=== PATIENT | female | born 1960 | race Caucasian/White ===

== ENCOUNTER 2017-09-13 06:34 | Day surgery (SDC) | payer OTHER, SELFPAY ==
[2017-09-13 07:03] VITALS: BP 138/90; PULSE 85; RESP 18; TEMP 36.2; O2SAT 99; BMI 30.1
--- NOTE | 2017-09-13 08:30 | COLBX_PTH ---
PATIENT: HEATHER RENTERIA LOC: EN U#:[id number] AGE/SX: 56/F ROOM: RE09/13/[address]: Dr. David Hoang MD : 1960 BED: DIS: 09/13/2017 SPEC #: [id number] RECD: 09/13/17 14:19 STATUS: LAN KRIS #: [id number] YOLIE: 09/13/17 08:[address]: David Hoang DEPT: SURGICAL PATHOLOGY RECD BY: Candace Peralta ENTERED: 09/13/17 14:38 SP TYPE: COLON BX OTHR DR: Dr. Werner Peres MD Tissues: Sigmoid colon biopsy Procedures: Surgery Specimen Level IV HEADER OPERATION: Colonoscopy ? open access (MAC) PRE-OP DIAGNOSIS: Screening TISSUE SUBMITTED: Polyp at sigmoid colon MICROSCOPIC DIAGNOSIS Sigmoid colon polyp, biopsy: Hyperplastic polyp. AM:dafne 09/14/17 MICROSCOPIC DESCRIPTION Slides are reviewed. GROSS DESCRIPTION Received in fixative is one container labeled with the patient's name and designated polyp sigmoid colon. The specimen consists of multiple irregular fragments of light thompson soft tissue that in aggregate measure 0.6 x 0.5 x 0.1 cm. The specimen is totally submitted in one cassette. / AM:dafne 09/13/17 TC:5 CPT: 34633
--- NOTE | 2017-09-13 08:49 | PCM.HP.STD ---
Problem List (1) Encounter for screening for malignant neoplasm of colon Status: Acute History of Present Illness Date of Admission: 09/13/17 The patient is a 56 year old F who presents for screening colonoscopy. Past Medical History Medical History: Medical History (Last Reviewed 09/13/17 @ 08:50 by David Hoang MD) SOB (shortness of breath) R06.02 Allergies cat dander Allergy (Verified 09/10/17 08:04) Unknown house dust Allergy (Verified 09/10/17 08:04) Unknown nickel Allergy (Verified 09/10/17 08:04) Unknown sweet pea Allergy (Uncoded 09/10/17 08:04) Unknown Home Medications: Ambulatory Orders Medication Instructions Recorded NK [NK] 09/10/17 Surgical History: Surgical History (Last Reviewed 09/13/17 @ 08:50 by David Hoang MD) History of cholecystectomy Z98.890, Z90.49 History of hysterectomy Z98.890, Z90.710 History of thyroid surgery Z98.890 Smoking Status: Former smoker Tobacco Use: Cigarettes - *Family History Maternal Family History: Family History (Last Updated 03/10/17 @ 09:25 by Alie Gilliam) Other COPD (chronic obstructive pulmonary disease) Heart disease History Items: No pertinent history Review of Systems Cardiovascular: Denies: Chest Pain, Chest Pressure, Chest Tightness, Palpitations Respiratory: Denies: Cough, Hemoptysis, Shortness of breath at rest, Shortness of breath upon exertion, Wheezing Gastrointestinal: Denies: Abdominal Pain, Constipation, Diarrhea, Hematemesis, Nausea, Melena, Vomiting VTE Information - Inpt Only VTE Present on Admission: No VTE Mechan Device Prophylaxis: None VTE Pharm Prophylaxis ordered?: No Reason prophylaxis not ordered:: Treatment Not Indicated Patient Problems: Active and Suspected Problems (Last Updated 03/10/17 @ 09:25 by Alie Gilliam) Encounter for screening for malignant neoplasm of colon (Acute) - Physical Exam Lungs: Clear to auscultation Cardiovascular: Regular rate, Regular Rhythm, No murmurs Abdomen: Bowel Sounds Present, Soft, Non Tender, Non-Distended Vital Signs Temp Pulse Resp BP Pulse Ox 97.2 F L 85 18 138/90 H 99 09/13/17 07:03 09/13/17 07:03 09/13/17 07:03 09/13/17 07:03 09/13/17 07:03 Oxygen Delivery Method Room Air Weight: 164 lb 14.492 oz Body Mass Index (BMI) 30.1 Assessment/Plan All Active Problems (Last Updated 03/10/17 @ 09:25 by Alie Gilliam) Encounter for screening for malignant neoplasm of colon (Acute) Sinusitis (Acute) Bronchitis (Acute) My plan is to perform a colonoscopy on the patient risk benefits have been reviewed with the patient at the time of the procedure she agrees to proceed.
--- NOTE | 2017-09-13 08:51 | PCM.OPRPT ---
Problem List (1) Encounter for screening for malignant neoplasm of colon Status: Acute Report of Operation Date of Procedure: 09/13/17 Pre-Operative Diagnosis: Screening colonoscopy Post-Operative Diagnosis: Same Surgery/Procedure Performed:: Colonoscopy with snare polypectomy 74865 Type of Anesthesia:: MAC Anesthesiologist: Serafin Van Description of Procedure: Patient brought in the endoscopy suite. Placed on the left lateral decubitus position. She was given graded anesthesia. Scope was inserted into the rectum and directed to the sigmoid colon, descending colon, transverse colon, ascending colon, to the cecum without difficulty operative findings: 1. Cecum: Normal appearance no mass lesions normal ileocecal valve. 2. Ascending colon: Normal appearance no mass lesions. 3. Transverse colon: Normal appearance no mass lesions. 4. Descending colon: Normal appearance no mass lesions. 5. Sigmoid colon: Normal appearance small polyp was identified was removed with snare cautery technique brought back to the channel of the scope. There is moderate amount of diverticular disease identified. 6. Rectum: Normal appearance no mass lesions internal hemorrhoids was identified. Patient will need to have another colonoscopy in 3 years. - Admit VTE Documentation VTE Present on Admission: No VTE Mechan Device Prophylaxis: SCD's VTE Pharm Prophylaxis ordered?: No Reason prophylaxis not ordered:: Treatment Not Indicated
[2017-09-13 08:55] VITALS: BP 107/67; BP 138/90; PULSE 85; RESP 18; TEMP 36.5; O2SAT 94
[2017-09-13 09:00] VITALS: BP 125/82; BP 138/90; PULSE 74; RESP 18; O2SAT 97
[2017-09-13 09:05] VITALS: BP 123/78; BP 138/90; PULSE 70; RESP 18; O2SAT 97
[2017-09-13 09:10] VITALS: BP 116/83; BP 138/90; PULSE 71; RESP 18; TEMP 36.7; O2SAT 98
[2017-09-13 09:49] VITALS: BP 138/90
== END 2017-09-13 09:49 | disposition home or self-care (01) ==
LOC: EN 06:35 → AC 06:36
PROVIDERS: Family Provider Internal Medicine; PCP Internal Medicine; Visit Provider Surgery
PROC: 0DJD8ZZ Inspection of Lower Intestinal Tract, Via Natural or Artificial Opening Endoscopic (ICD-10-PCS; CPT 45378; principal; 2017-09-13 08:25)
DX: Z12.11 Encounter for screening for malignant neoplasm of colon (principal); K63.5 Polyp of colon; K57.30 Diverticulosis of large intestine without perforation or abscess without bleeding; Q61.3 Polycystic kidney, unspecified; J20.9 Acute bronchitis, unspecified; J01.90 Acute sinusitis, unspecified; Z78.0 Asymptomatic menopausal state; Z87.891 Personal history of nicotine dependence; Z90.49 Acquired absence of other specified parts of digestive tract; Z90.710 Acquired absence of both cervix and uterus
CPT/HCPCS: 45385; 88305; J7120

== ENCOUNTER 2019-03-31 07:00 | Emergency (ER) | payer OTHER, SELFPAY ==
[2019-03-01 17:04] VITALS: BMI 30.1
[2019-03-31 07:01] VITALS: BP 133/96; PULSE 82; RESP 16; TEMP 36.4; O2SAT 97; BMI 33.0
--- NOTE | 2019-03-31 07:17 | ED.RN ---
PT STATES NEED FOR USE OF BATHROOM. GIVEN SYNCOPAL EPISODE X2 THIS AM, BEDSIDE COMMODE OFFERED FOR SAFETY. PT REFUSED STATING THAT SHE WOULD WALK OUT OF ED IF NOT ALLOWED TO USE RESTROOM. PT AGAIN TOLD THAT FOR SAFETY REASONS A BEDSIDE COMMODE WOULD BE PREFERRED. PT AGAIN STATED THAT SHE WOULD CRAWL OUT OF THE BED AND LEAVE ON HER OWN IF NOT TAKEN TO RESTROOM. PT WAS ASSISTED TO RESTROOM AND DIRECTED TO CALL LIGHT CORD IF SHE FELT ILL. PT MONITORED WHILE IN RESTROOM. PT AMBULATED BACK TO ROOM PER SELF.
--- NOTE | 2019-03-31 07:26 | EKG12_ITS ---
Test Reason : SYNCOPE Blood Pressure : / mmHG Vent. Rate : 071 BPM Atrial Rate : 071 BPM P-R Int : 150 ms QRS Dur : 080 ms QT Int : 394 ms P-R-T Axes : 071 028 007 degrees QTc Int : 428 ms Normal sinus rhythm Nonspecific T wave abnormality Abnormal ECG Confirmed by SONALI MOYA, NELSON ([id number]), editor house organ ANTON BENITO ([id number]) on 04/03/2019 2:36:42 PM Referred By: KAYLAN Confirmed By:RICK LYON MD
--- NOTE | 2019-03-31 07:27 | RAD_ITS ---
STUDY: X-RAY CHEST REASON FOR EXAM: Female, 58 years old. syncopal episode x 2 TECHNIQUE: PA and lateral views of the chest. COMPARISON: None. FINDINGS: The lungs are clear and expanded. There is no demonstrated pleural abnormality. Normal size heart. Normal mediastinum and hoang. Normal visualized pulmonary arteries. Normal visualized aortic arch and descending thoracic aorta. Normal visualized thoracic spine. Normal visualized ribs, clavicles, and shoulders. There is no demonstrated abnormality of the visualized soft tissue structures of the upper abdomen. RAD/Chest PA and Lateral IMPRESSION: Normal x-ray examination of the chest. Electronically Signed: Randall Vo MD at 8:13 EST Tel , Service support ,
[2019-03-31] MEDS: 0.9% Normal Saline 1,000 ML 1000 ML IV (07:33)
[2019-03-31 07:36] LABS: Absolute Neutrophil Count 5.7 X10^3/uL (2.0-7.7); Basophil# 0.05 X10^3/uL; Basophil% 0.6 % (0-1); Eosinophil# 0.14 X10^3/uL; Eosinophils% 1.6 % (0-5); Hematocrit 47.7 % (37-47); Hemoglobin 15.7 g/dL (12.0-15.0); Lymphocyte % 26.9 % (19-41); Mean Corp Hgb Conc 32.9 g/dL (32-36); Mean Platelet Vol. 10.5 fl (6.2-12.0); Monocyte# 0.66 X10^3/uL; Monocyte% 7.4 % (0-10); NRBC Flagged by Analyzer 0 % (0-5); Neutrophil # 5.65 X10^3/uL (2.7-7.7); Neutrophil % 63.2 % (47-70); Platelet Count 183 K/mm3 (150-450); RBC Distribution Width CV 12.7 % (11.6-14.6); RBC Distribution Width SD 42.2 fl (35.1-43.9); Red Blood Count 5.24 M/mm3 (4.2-5.4); White Blood Count 8.9 K/mm3 (4.4-11.0)
[2019-03-31 07:46] LABS: ALB/GLOB Ratio 1.3 RATIO (0.9-2.4); AST(SGOT) 23 U/L (15-37); Alanine Aminotransfer ALT/SGPT 26 U/L (13-56); Albumin, Serum 3.8 g/dL (3.2-5.0); Alkaline Phosphatase 71 U/L (45-117); Anion Gap 5 (5-15); BUN 20 mg/dL (7-18); BUN/Creat Ratio 18.9 RATIO (10-20); Calcium,Total 8.5 mg/dL (8.5-10.1); Chloride 111 mmol/L (98-107); Creatinine, Serum 1.06 mg/dL (0.55-1.02); EST Glomerular Filtration Rate 56 mL/min (>60); Est Glom Filt Rate - Afr Amer 68 mL/min (>60); Globulin 2.9 g/dL (2.2-4.2); Glucose 139 mg/dL (74-106); Lipase 241 U/L (73-393); Potassium 3.8 mmol/L (3.5-5.1); Protein, Total 6.7 g/dL (6.4-8.2); Sodium Level 140 mmol/L (136-145)
--- NOTE | 2019-03-31 07:49 | ED.DCSUM_ITS ---
- ER Visit Summary Date of Service: 03/31/19 Chief Complaint: Syncope History of Present Illness: The patient is a 58 F who presents with 2 syncopal episodes that occurred today while she was at work. Patient states that while she was driving to work she felt lightheaded. Patient states she became nauseat ed and had dry heaves. Patient states that when she got to work she went to the bathroom and started having diarrhea. Patient states when she attempted to stand from the toilet she got lightheaded. Patient states she was able to get to the sink and then passed out on the floor. Patient states she was feeling hot at the time but denies any sweats. Patient states she was able to stand back up and started walking to the break room. Patient states that while she was walking to the break room she felt lightheaded again and passed out again. Patient denies any palpitations. Patient denies any chest pain. Patient denies any shortness of breath. Physical Examination: Vital signs are stable. Patient is afebrile. Patient is in no acute distress. Oral mucosa is pink and moist. Neck is supple. Trachea is midline. There is no JVD noted. Heart was regular rate and rhythm. Lungs are clear and equal bilaterally. Abdomen is soft. Bowel sounds are normal. There is no tenderness. There is no rebound or guarding noted. Skin is warm dry. Cranial nerves II through XII are intact. There are no focal motor or sensory deficits noted. Extremities are intact. There is no calf tenderness or edema. Test Results: EKG shows normal sinus rhythm with a rate of 71. There are no acute ST or T wave changes. There are no prior EKGs available for comparison. CBC, comprehensive metabolic profile, lipase, urinalysis, and troponin were obtained were all within normal limits. PA and lateral chest x-ray was obtained. There is no acute cardiopulmonary process. This was interpreted by the radiologist and myself. Emergency Department Course and Treatment: Patient was given IV fluids. Orthostatic vital signs were normal. Patient was feeling better on reevaluation. Patient was advised that this syncopal episode is most likely to the nausea and vomiting from a viral illness. Patient was instructed to start with a liquid diet and advance her diet as tolerated. Patient was instructed to follow-up with her primary care physician in 5 to 7 days. Patient understood and was agreeable with the plan. All questions were answered. Disposition: Discharge home Impression: 1. Syncope 2. Nausea, vomiting, diarrhea This note was generated with [employer] dictation software. It may contain incorrect words, spelling, and punctuation that were not noted in review of the chart prior to signing ED Disposition - Plan for ED Patient: Disposition: Home or Assisted Living Diagnosis: Syncope, Nausea vomiting and diarrhea Instructions: SYNCOPE, Unk Cause, VOMITING AND DIARRHEA, Nonspecific (Adult) Referrals: Werner Peres MD [Primary Care Provider] - 3-5 Days
[2019-03-31 09:33] VITALS: BP 123/81; BP 127/73; BP 131/77; PULSE 75; PULSE 82; PULSE 99; RESP 18; O2SAT 97
[2019-03-31 09:38] LABS: Color, Urine Yellow (Yellow); Glucose, Dipstick Normal (Normal); Ketone-Dipstick Negative (Negative); Leukocyte Esterase-Dipstick Negative /ul (Negative); Nitrite-Dipstick Negative (Negative); Occult Blood-Urine 10 /ul (Negative); Protein-Dipstick 30 mg/dl (Negative); Urine Bilirubin Dipstick Negative (Negative); Urine Clarity Sl. Cloudy (Clear); Urine Urobilinogen Normal (Normal)
[2019-03-31 09:50] LABS: Bacteria 1+ /hpf (None Seen); Fine Granular Cast- Urine 0-5 SEEN /lpf (0-5); Mucous, Urine 1+ /hpf (<or=2+); Red Blood Cells-Urine 0-5 SEEN /hpf (0-5); Squamous Epithelial Cells - UA 0-5 SEEN /hpf (5-10); White Blood Cells 0-5 SEEN /hpf (0-5)
== END 2019-03-31 10:26 | disposition home or self-care (01) ==
PROVIDERS: Emergency Provider Emergency Medicine; PCP Internal Medicine
DX: R55 Syncope and collapse (principal); R11.2 Nausea with vomiting, unspecified; R19.7 Diarrhea, unspecified
CPT/HCPCS: 71046; 80053; 81001; 83690; 84484; 85025; 93005; 99285; A4216

== ENCOUNTER 2020-09-20 05:07 | Day surgery (SDC) | payer OTHER, SELFPAY ==
[2020-09-20] VITALS (14 sets, daily range): BP systolic 78–143; BP diastolic 38–88; PULSE 81–90; RESP 14–16; TEMP 36–37.1; O2SAT 94–100; BMI 31.1
[2020-09-20] MEDS: Lactated Ringers 1,000 ML 100 ML IV (05:35)
--- NOTE | 2020-09-20 05:49 | HP.PCM_ITS ---
HPI - General HPI Narrative HEATHER RENTERIA, is a 60 F who presents for surveillance colonoscopy today. On September 13, [address] Hoang the patient had a colonoscopy with snare polypectomy. This was a sigmoid polyp. Follow-up in 3 years was recommended. Fortunately the patient is not having any difficulties. No abdominal pain. No bright red blood per rectum or melena. No unexpected weight loss. She otherwise states that she is in good health. She is not on any chronic medications. [facility] Medical History (Updated 09/20/20 @ 06:[address] Loc Blanchard MD) Arthritis Back pain Blackout Chronic cough Former smoker Post-menopausal SOB (shortness of breath) Syncope Wears dentures Wears glasses Home Medications NK 03/31/19 [History Last Taken Unknown] Allergy/AdvReac Type Severity Reaction Status Date / Time cat dander Allergy Unknown Verified 09/20/20 05:35 house dust Allergy Unknown Verified 09/20/20 05:35 nickel Allergy Unknown Verified 09/20/20 05:35 sweet pea Allergy Unknown Uncoded 09/20/20 05:35 Family History Other COPD (chronic obstructive pulmonary disease) Heart disease Surgical History (Updated 09/18/20 @ 16:07 by Elena Bucio) History of cholecystectomy History of hysterectomy History of thyroid surgery Hx of colonoscopy Hx of tooth extraction Social History (Updated 03/01/19 @ 17:08 by Kendrick CRUM, PA) Smoking Status: Never smoker alcohol intake: never ROS Constitutional Constitutional: Reports systems reviewed and no addt'l complaints, except as documented Cardiovascular Cardiovascular: Denies chest pain Respiratory/Chest Respiratory/Chest: Denies shortness of breath at rest Gastrointestinal Gastrointestinal: Denies abdominal pain, change in bowel habits, hematochezia or melena Vital Signs Vital Signs Vital Signs: Weight Body Mass Index (BMI) 33.0 Physical Exam Const alert, oriented x3 and no apparent distress General Appearance: cooperative and comfortable Eyes General Eye: normal appearance of both eyes Neck General: normal visual inspection Chest inspection of chest normal Resp Effort and Inspection: able to speak in complete sentences and symmetric chest movement Auscultation: clear to auscultation bilaterally Cardio regular rate and regular rhythm GI soft to palpation, non-tender and non-distended Extremity no calf tenderness Neuro oriented x3 Psych thought process normal Assessment & Plan Assessment/Plan (1) Personal history of colonic polyps: PLAN: I recommended the patient her surveillance colonoscopy with possible biopsy or polypectomy as indicated. She is aware of the technique, benefit, risk, alternatives. She has had an opportunity to ask and have questions answered. She presents via open access today. We will proceed as noted. Loc Blanchard M.D., F.A.C.S.
[2020-09-20] MEDS: Midazolam 5 MG/ML Syringe ×2 (06:25→06:54)
--- NOTE | 2020-09-20 06:30 | COLBX_PTH ---
PATIENT: HEATHER RENTERIA LOC: EN U#:[id number] AGE/SX: 60/F ROOM: RE09/20/[address]: Dr. Loc Blanchard MD : 1960 BED: DIS: 09/20/2020 SPEC #: [id number] RECD: 09/20/20 10:53 STATUS: LAN PONCE #: [id number] YOLIE: 09/20/20 06:[address]: Loc Blanchard DEPT: SURGICAL PATHOLOGY RECD BY: Candace Peralta ENTERED: 09/20/20 13:56 SP TYPE: COLON BX OTHR DR: Dr. Werner Peres MD Tissues: A - Colon, NOS B - SPLENIC FLEXURE Procedures: Surgery Specimen Level IV HEADER OPERATION: Colonoscopy ? open access (MOD) PRE-OP DIAGNOSIS: Colonic polyps TISSUE SUBMITTED: A - Hepatic flexure polyps x2 (cold snare and biopsy), B - Splenic flexure polyp biopsy MICROSCOPIC DIAGNOSIS A. Hepatic flexure polyps x2, cold snare and biopsy: Fragments of tubular adenoma. Fragments of hyperplastic polyp. B. Splenic flexure polyp, biopsy: Fragments of colonic mucosa, no pathologic diagnosis. SEKOU:dafne 09/23/2020 MICROSCOPIC DESCRIPTION Slides are reviewed. GROSS DESCRIPTION A - Received in fixative is one container labeled with the patient's name and designated hepatic flexure polyp. The specimen consists of multiple irregular fragments of light thompson soft tissue that in aggregate measure 2.5 x 0.7 x 0.2 cm. The specimen is totally submitted in one cassette. B - Received in fixative is one container labeled with the patient's name and designated splenic flexure polyp biopsy. The specimen consists of multiple irregular fragments of light thompson soft tissue that in aggregate measure 1 x 0.3 x 0.1 cm. The specimen is totally submitted in one cassette. / SEKOU:dafne 09/20/20 TC:1 CPT: 89950 x2
--- NOTE | 2020-09-23 09:51 | OP.CCLET_ITS ---
09/23/2020 Werner Peres [address] [place] [address] Re : Colonoscopy procedure for Saundra Beltrán Dear Dr. Peres This procedure was performed on Sunday, September 20, 2020. My impressions and recommendations are as follows: Impressions : - Hemorrhoids found on perianal exam. - Anal stricture found on digital rectal exam. - One 10 mm polyp at the hepatic flexure, removed with a cold snare. - One 8 mm polyp at the splenic flexure, removed with a cold biopsy forceps. Resected and retrieved. - Diverticulosis in the sigmoid colon and in the descending colon. Recommendations : - Discharge patient to home. - Resume previous diet. - Continue present medications. - Repeat colonoscopy in 1 year for surveillance based on pathology results. - Return to my office in 1 week. My findings are described in the full procedure note, which is enclosed. If I can be of further assistance, please feel free to contact me at Doctor phone number(s): Work: . Sincerely, Loc Blanchard MD 09/20/2020 7:09:05 AM This report has been signed electronically.
--- NOTE | 2020-09-23 09:51 | OP.COLON_ITS ---
Patient Name: Saundra Beltrán Procedure Date: 09/20/2020 6:16 AM Date of : 1960 Age: 60 Procedure: Colonoscopy Indications: High risk colon cancer surveillance: Personal history of colonic polyps Providers: Loc Blanchard MD Referring MD: Werner Peres Medicines: Midazolam 5.5 mg IV, Meperidine 100 mg IV Patient Profile: Last Colonoscopy: July 2017. Complications: No immediate complications. Procedure: Pre-Anesthesia Assessment: - Prior to the procedure, a History and Physical was performed, and patient medications and allergies were reviewed. The patient's tolerance of previous anesthesia was also reviewed. The risks and benefits of the procedure and the sedation options and risks were discussed with the patient. All questions were answered, and informed consent was obtained. Prior Anticoagulants: The patient has taken no previous anticoagulant or antiplatelet agents. ASA Grade Assessment: II - A patient with mild systemic disease. After reviewing the risks and benefits, the patient was deemed in satisfactory condition to undergo the procedure. After I obtained informed consent, the scope was passed under direct vision. Throughout the procedure, the patient's blood pressure, pulse, and oxygen saturations were monitored continuously. The colonoscope was introduced through the anus and advanced to the cecum, identified by appendiceal orifice and ileocecal valve. The colonoscopy was extremely difficult due to a redundant colon. The patient tolerated the procedure well. The quality of the bowel preparation was adequate to identify polyps. Moderate Sedation: Moderate (conscious) sedation was personally administered by the endoscopist. The following parameters were monitored: oxygen saturation, heart rate, blood pressure, and response to care. Total physician intraservice time was 20 minutes. Scope In: 6:28:35 AM Scope Withdrawal Time 0 hours 25 minutes 7 seconds Scope Out: 7:00:19 AM Total Procedure Duration Time 0 hours 31 minutes 44 seconds Findings: Hemorrhoids were found on perianal exam. The digital rectal exam findings include anal stricture. A 10 mm polyp was found in the hepatic flexure. The polyp was sessile. The polyp was removed with a cold snare. There was a polyp on the inner curvature side of the hepatic flexure and a separate 12 mm polyp on the outer curvature. The outer curvature polyp was retrieved with a cold snare and completely removed. The inner curvature polyp was treated both with a cold snare and multiple biopsy forceps. However because of the acute angulation of the inner curvature I could not completely eradicate that polyp. Multiple specimens however were obtained. A 8 mm polyp was found in the splenic flexure. The polyp was sessile. The polyp was removed with a cold biopsy forceps. Resection and retrieval were complete. Multiple diverticula were found in the sigmoid colon and descending colon. Impression: - Hemorrhoids found on perianal exam. - Anal stricture found on digital rectal exam. - One 10 mm polyp at the hepatic flexure, removed with a cold snare. - One 8 mm polyp at the splenic flexure, removed with a cold biopsy forceps. Resected and retrieved. - Diverticulosis in the sigmoid colon and in the descending colon. Recommendation: - Discharge patient to home. - Resume previous diet. - Continue present medications. - Repeat colonoscopy in 1 year for surveillance based on pathology results. - Return to my office in 1 week. Procedure Code(s): --- Professional --- 40445, Colonoscopy, flexible; with removal of tumor(s), polyp(s), or other lesion(s) by snare technique 52175, 59, Colonoscopy, flexible; with biopsy, single or multiple 86786, 59, Moderate sedation services provided by the same physician or other qualified health animal care service worker performing the diagnostic or therapeutic service that the sedation supports, requiring the presence of an independent trained observer to assist in the monitoring of the patient's level of consciousness and physiological status; initial 15 minutes of intraservice time, patient age 5 years or older Diagnosis Code(s): --- Professional --- Z86.010, Personal history of colonic polyps K64.9, Unspecified hemorrhoids K62.4, Stenosis of anus and rectum D12.3, Benign neoplasm of transverse colon (hepatic flexure or splenic flexure) K57.30, Diverticulosis of large intestine without perforation or abscess without bleeding CPT copyright 2017 [employer] [place] [employer]. All rights reserved. The codes documented in this report are preliminary and upon evaluator review may be revised to meet current compliance requirements. Loc Blanchard MD 09/20/2020 7:09:05 AM This report has been signed electronically. Number of Addenda: 0 Note Initiated On: 09/20/2020 6:16 AM
== END 2020-09-20 07:47 | disposition home or self-care (01) ==
LOC: EN 05:10 → AC 05:11
PROVIDERS: PCP Internal Medicine; Referring Provider Internal Medicine; Visit Provider Surgery
PROC: 0DJD8ZZ Inspection of Lower Intestinal Tract, Via Natural or Artificial Opening Endoscopic (ICD-10-PCS; CPT 45378; principal; 2020-09-20 06:25)
DX: Z12.11 Encounter for screening for malignant neoplasm of colon (principal); D12.3 Benign neoplasm of transverse colon; K63.5 Polyp of colon; K57.30 Diverticulosis of large intestine without perforation or abscess without bleeding; K64.9 Unspecified hemorrhoids; K62.4 Stenosis of anus and rectum; Z78.0 Asymptomatic menopausal state; Z87.19 Personal history of other diseases of the digestive system; Z87.891 Personal history of nicotine dependence
CPT/HCPCS: 45380; 45385; 88305; 99152; 99153; J7120

== ENCOUNTER → 2020-10-22 | Outpatient (CLI) | payer OTHER, SELFPAY ==
--- NOTE | 2020-10-22 12:00 | SOF_PTH ---
PATIENT: HEATHER RENTERIA LOC: [facility]#:[id number] AGE/SX: 60/F ROOM: RE10/22/[address]: Dr. Omer Patel DO : 1960 BED: DIS: 10/22/2020 SPEC #: [id number] RECD: 10/22/20 14:55 STATUS: LAN REMary #: [id number] YOLIE: 10/22/20 12:[address]: Omer Patel DEPT: SURGICAL PATHOLOGY RECD BY: Joanna Escalante ENTERED: 10/23/20 11:40 SP TYPE: SOFT TISS OTHR DR: Dr. Werner Peres MD [facility] Tissues: Soft tissues, NOS Procedures: Surgery Specimen Level III HEADER OPERATION: Excision mucous cyst right ring finger, soft tissue mass right index finger PRE-OP DIAGNOSIS: Mucous cyst right ring finger, soft tissue mass right index finger TISSUE SUBMITTED: Soft tissue mass, volar right index finger MICROSCOPIC DIAGNOSIS Soft tissue mass, volar right index finger, excision: A piece of fibroadipose tissue with vascular ectasia and hemorrhage. See comment. SEKOU:dafne 10/24/2020 COMMENT Changes consistent with mucous cyst are not seen. Clinical correlation and appropriate follow up are necessary. Case has been reviewed in consultation with Dr. Diaz who concurs with the above diagnosis. IDC:AM MICROSCOPIC DESCRIPTION Slides are reviewed. GROSS DESCRIPTION Received is one container labeled with the patient's name and not further designated. The specimen consists of a piece of thompson-brown soft tissue measuring 0.7 x 0.3 x 0.2 cm. The entire specimen is submitted in one cassette. / SEKOU:dafne 10/23/20 TC:3 CPT: 28372
== END | disposition home or self-care (01) ==
LOC: LABSPEC 16:17
PROVIDERS: PCP Internal Medicine; Referring Provider Student in an Organized Health Care Education/Training Program; Visit Provider Student in an Organized Health Care Education/Training Program
DX: M79.9 Soft tissue disorder, unspecified (principal)
CPT/HCPCS: 88304

== ENCOUNTER 2020-11-04 12:22 | Outpatient (CLI) | payer OTHER, SELFPAY ==
[2020-11-04 12:44] VITALS: BP 135/90; PULSE 101; RESP 16; TEMP 36.7; O2SAT 99; BMI 30.7
[2020-11-04] MEDS: 0.9% Saline Lock 10 ML Syringe IV (12:49)
[2020-11-04 13:20] VITALS: BP 142/82; PULSE 83; RESP 16; TEMP 36.5; O2SAT 99
[2020-11-04 14:20] VITALS: BP 153/92; PULSE 74; RESP 16; TEMP 36.7; O2SAT 98
== END 2020-11-04 14:20 | disposition home or self-care (01) ==
LOC: ICUOUT 12:23 → MS3 12:23
PROVIDERS: PCP Internal Medicine; Referring Provider Nurse Practitioner Adult Health; Visit Provider Nurse Practitioner Adult Health
DX: Z23 Encounter for immunization (principal); U07.1 COVID-19
CPT/HCPCS: J7050; M0243; A4216; Q0244

== ENCOUNTER 2022-09-10 05:14 | Day surgery (SDC) | payer OTHER, SELFPAY ==
[2022-09-10 05:46] VITALS: BP 149/99; PULSE 84; RESP 18; TEMP 36.7; O2SAT 99; BMI 34.2
[2022-09-10] MEDS: Lactated Ringers 1,000 ML 15 ML IV (05:57)
--- NOTE | 2022-09-10 06:30 | COLBX_PTH ---
PATIENT: HEATHER RENTERIA LOC: EN U#:[id number] AGE/SX: 61/F ROOM: RE09/10/[address]: Dr. Aj Jolly DO : 1960 BED: DIS: 09/10/2022 SPEC #: [id number] RECD: 09/10/22 08:16 STATUS: LAN REMary #: [id number] YOLIE: 09/10/22 06:[address]: Aj Jolly DEPT: SURGICAL PATHOLOGY RECD BY: Joanna Escalante ENTERED: 09/10/22 11:54 SP TYPE: COLON BX OTHR DR: Dr. Werner Peres MD Tissues: A - Sigmoid colon biopsy B - COLON BIOPSY Procedures: Surgery Specimen Level IV HEADER OPERATION: Colonoscopy (MAC), biopsy, polypectomy PRE-OP DIAGNOSIS: History of colonic polyp TISSUE SUBMITTED: A - Sigmoid polyp biopsy, B - Polyp splenic flexure MICROSCOPIC DIAGNOSIS A. Sigmoid colon polyp, biopsy: Fragments of hyperplastic polyp. B. Colonic polyp at splenic flexure, biopsy: Fragments of tubular adenoma. AM:dafne 09/11/2022 MICROSCOPIC DESCRIPTION Slides are reviewed. GROSS DESCRIPTION A - Received in fixative is one container labeled with the patient's name and designated sigmoid polyp. The specimen consists of multiple irregular fragments of light thompson soft tissue that in aggregate measure 1.0 x 0.2 x 0.1 cm. The specimen is totally submitted in one cassette. B - Received in fixative is one container labeled with the patient's name and designated polyp at splenic flexure. The specimen consists of a thompson-pink polyp measuring 1.0 x 0.5 x 0.5 cm. Also present in the container are smaller fragments of thompson soft tissue measuring in aggregate 0.5 x 0.2 x 0.1 cm. The polyp is bisected. The entire specimen is submitted in one cassette. / SJ:dafne 09/10/2022 TC:5 CPT: 00551 x2
--- NOTE | 2022-09-10 06:39 | PCM.HP.BLA ---
History and Physical Date of Admission: 09/10/22 HEATHER RENTERIA, is a 61 F who presents to the office today for Prior workup: Colonoscopy Dr. Hoang 8 for screening purposes finding one colonic hyperplastic polyp; diverticulosis. Colonoscopy Dr. Blanchard 09.20.20 for screening purposes noting hemorrhoids; anal stricture; two polyps, one TA and one without changes; diverticulosis. *[facility]I established 06.19.22 with referral from PCP for positive Cologuard and history of colonic polyps. Grandmother?s brother had colon cancer; no other family history. Denies bowel changes or difficult with daily movement. Reports that Dr. Blanchard performed last colonoscopy and that there was a polyp just past the hepatic flexure that he could not access as it ?was out of their league?. ROS Const Constitutional: No anorexia, fatigue, fever(s), weight change or sleep problems Eyes Eyes: No change in vision ENT ENT: No abnormal hearing, difficulty swallowing, mouth lesions, tongue swelling or throat swelling Resp Respiratory: No cough or shortness of breath Cardio Cardiology: No chest pain at rest, chest pain with exertion, shortness of breath or dyspnea on exertion Gastro GI: No difficulty swallowing Genitourinary-Female: No difficulty urinating or burning urination Musc Musculoskeletal: No joint pain, joint swelling, muscle weakness or decreased muscle mass Skin Skin: No hair loss in leg, yellowing of the eye, itchy eyes, rash, skin ulcer or skin swelling Neuro Neurology: No abnormal hearing, abnormal movements, confusion, unsteady gait/balance or memory loss Psych Psychiatric: No anxiety, No confusion and No memory loss Endo Endocrine: No fatigue or weight change Aller/Imm Allergy/Immunologic: No itchy eyes, throat swelling or tongue swelling Fernando/Lymp Hematologic/Lymphatic: No easy bleeding, easy bruising or enlarged lymph nodes Exam Const General: cooperative and comfortable Nutritional Appearance: average body habitus and well nourished HENDC Head: normal to inspection Ears: hearing grossly normal bilaterally Nose: external nose normal Face and sinus: normal facial exam Mouth: oral mucosae normal Throat: posterior oropharynx normal Eyes General: appearance normal, both eyes and all related structures Neck Neck: normal visual inspection Chest Chest palpation & inspection: normal inspection of the chest and normal palpation of entire chest wall Resp Effort & Inspection: normal respiratory effort Auscultation: Bilateral: Clear to Auscultation Cardio Palpation: normal PMI Rate: regular rate Rhythm: regular rhythm GI Inspection: normal to inspection Auscultation: normal bowel sounds Percussion: normal to percussion Palpation: no hepatosplenomegaly Skin General: no rashes or lesions noted Neuro General: patient alert Extrem General: normal to inspection Psych Affect: normal affect Quality Reporting Tobacco Screening ([facility] 138) Smoking Status: Never smoker Assessment and Plan Assessment and Plan (1) Personal history of colonic polyps: Status: Chronic Plan: She will undergo repeat colonoscopy. She was explained she was explained alternatives, risk, benefits including and not withstanding bleeding, infection, sepsis, perforation, need for emergent surgery and . She will have an ASA 3. I have examined the patient and the H&P has been reviewed. There are no clinical changes since date of exam.
[2022-09-10 07:15] VITALS: BP 149/99; BP 83/60; PULSE 83; RESP 16; TEMP 36.1; O2SAT 95
[2022-09-10 07:20] VITALS: BP 149/99; BP 98/66; PULSE 80; RESP 18; O2SAT 94
--- NOTE | 2022-09-10 07:22 | OP.COLON_ITS ---
Patient Name: Saundra Beltrán Procedure Date: 09/10/2022 6:14 AM Date of : 1960 Age: 61 Procedure: Colonoscopy Indications: Screening for colorectal malignant neoplasm Providers: Aj Jolly DO Referring MD: Aj Jolly DO Medicines: Monitored Anesthesia Care Patient Profile: This is a 61 year old female. Refer to note in patient chart for documentation of history and physical. Last Colonoscopy: several years ago. Complications: No immediate complications. Procedure: Pre-Anesthesia Assessment: - Prior to the procedure, a History and Physical was performed, and patient medications and allergies were reviewed. The patient is competent. The risks and benefits of the procedure and the sedation options and risks were discussed with the patient. All questions were answered and informed consent was obtained. Patient identification and proposed procedure were verified by the physician. Mental Status Examination: alert and oriented. Airway Examination: normal oropharyngeal airway and neck mobility. Respiratory Examination: clear to auscultation. CV Examination: normal. Prophylactic Antibiotics: The patient does not require prophylactic antibiotics. Prior Anticoagulants: The patient has taken no previous anticoagulant or antiplatelet agents. After reviewing the risks and benefits, the patient was deemed in satisfactory condition to undergo the procedure. The anesthesia plan was to use monitored anesthesia care (MAC). Immediately prior to administration of medications, the patient was re-assessed for adequacy to receive sedatives. The heart rate, respiratory rate, oxygen saturations, blood pressure, adequacy of pulmonary ventilation, and response to care were monitored throughout the procedure. The physical status of the patient was re-assessed after the procedure. After I obtained informed consent, the scope was passed under direct vision. Throughout the procedure, the patient's blood pressure, pulse, and oxygen saturations were monitored continuously. The colonoscope was introduced through the anus and advanced to the cecum, identified by appendiceal orifice and ileocecal valve. The colonoscopy was performed without difficulty. The patient tolerated the procedure well. The quality of the bowel preparation was adequate. Scope In: 6:54:54 AM Scope Withdrawal Time 0 hours 10 minutes 32 seconds Scope Out: 7:09:30 AM Total Procedure Duration Time 0 hours 14 minutes 36 seconds Findings: The perianal and digital rectal examinations were normal. Non-bleeding internal hemorrhoids were found during retroflexion. The hemorrhoids were Grade I (internal hemorrhoids that do not prolapse). Multiple small and large-mouthed diverticula were found in the recto-sigmoid colon, sigmoid colon and descending colon. A 5 mm polyp was found in the sigmoid colon. The polyp was sessile. The polyp was removed with a cold biopsy forceps. Resection and retrieval were complete. A 19 mm polyp was found in the splenic flexure. The polyp was sessile. The polyp was removed with a hot snare. Resection and retrieval were complete. Verification of patient identification for the specimen was done. Estimated blood loss was minimal. The exam was otherwise without abnormality on direct and retroflexion views. Impression: - Non-bleeding internal hemorrhoids. - Diverticulosis in the recto-sigmoid colon, in the sigmoid colon and in the descending colon. - One 5 mm polyp in the sigmoid colon, removed with a cold biopsy forceps. Resected and retrieved. - One 19 mm polyp at the splenic flexure, removed with a hot snare. Resected and retrieved. - The examination was otherwise normal on direct and retroflexion views. Recommendation: - Discharge patient to home. - Resume previous diet. - Continue present medications. - Await pathology results. - Repeat colonoscopy in 5 years for surveillance. Procedure Code(s): --- Professional --- 40101, Colonoscopy, flexible; with removal of tumor(s), polyp(s), or other lesion(s) by snare technique 71298, 59, Colonoscopy, flexible; with biopsy, single or multiple CPT copyright 2017 [employer]. All rights reserved. The codes documented in this report are preliminary and upon rfid manager review may be revised to meet current compliance requirements. Aj Jolly DO 09/10/2022 7:21:17 AM This report has been signed electronically. Number of Addenda: 0 Note Initiated On: 09/10/2022 6:14 AM
--- NOTE | 2022-09-10 07:22 | OP.CCLET_ITS ---
09/10/2022 Werner Peres [address] [place] [address] Re : Colonoscopy procedure for Saundra Beltrán Dear Dr. Peres This procedure was performed on September. My impressions and recommendations are as follows: Impressions : - Non-bleeding internal hemorrhoids. - Diverticulosis in the recto-sigmoid colon, in the sigmoid colon and in the descending colon. - One 5 mm polyp in the sigmoid colon, removed with a cold biopsy forceps. Resected and retrieved. - One 19 mm polyp at the splenic flexure, removed with a hot snare. Resected and retrieved. - The examination was otherwise normal on direct and retroflexion views. Recommendations : - Discharge patient to home. - Resume previous diet. - Continue present medications. - Await pathology results. - Repeat colonoscopy in 5 years for surveillance. My findings are described in the full procedure note, which is enclosed. If I can be of further assistance, please feel free to contact me at . Sincerely, Aj Jolly, 09/10/2022 7:21:17 AM This report has been signed electronically.
[2022-09-10 07:25] VITALS: BP 108/72; BP 149/99; PULSE 74; RESP 18; O2SAT 96
[2022-09-10 07:30] VITALS: BP 122/68; BP 149/99; PULSE 70; RESP 18; O2SAT 97
[2022-09-10 07:44] VITALS: BP 149/99
== END 2022-09-10 08:05 | disposition home or self-care (01) ==
LOC: EN 05:21 → AC 05:21
PROVIDERS: PCP Internal Medicine; Referring Provider Internal Medicine; Visit Provider Internal Medicine Gastroenterology
PROC: 0DJD8ZZ Inspection of Lower Intestinal Tract, Via Natural or Artificial Opening Endoscopic (ICD-10-PCS; CPT 45378; principal; 2022-09-10 06:25)
DX: Z12.11 Encounter for screening for malignant neoplasm of colon (principal); K57.30 Diverticulosis of large intestine without perforation or abscess without bleeding; D12.3 Benign neoplasm of transverse colon; K64.0 First degree hemorrhoids; Z86.010 Personal history of colon polyps; Z79.899 Other long term (current) drug therapy
CPT/HCPCS: 45385; 45380; 88305; J7120; J2405